=== PATIENT | male | born 1960 | race African-American/Black ===

== ENCOUNTER 2016-11-27 14:48 | Inpatient (IN) ==
[2016-11-27 15:57] LABS: AGAP 13; ALKALINE PHOSPHATASE 51 U/L (32-122); BASO% 0.1 % (0.0-0.8); BUN 22 mg/dL (8-22); CALCIUM 9.5 mg/dL (8.8-10.2); CHLORIDE 99 mmol/L (98-107); COSMO 280; EOS# 0.02 X1000 (0.0-0.7); EOS% 0.1 % (0.0-10.0); GOT 24 U/L (10-34); GPT 25 U/L (10-44); HEMATOCRIT 39.7 % (42.0-52.0); HEMOGLOBIN 13.4 g/dL (14.0-18.0); IMM GRAN# 0.03 X1000 (0.0-0.04); IMM GRAN% 0.2 % (0.0-0.5); LYMPH# 0.95 X1000 (1.2-3.4); LYMPH% 6.5 % (20.5-51.1); MANUAL DIFF NEEDED? NO; MCH 31.2 PG (27-31); MCHC 33.8 g/dL (33-37); MCV 92.3 FL (81-99); MONO# 1.15 X1000 (0.11-0.59); MONO% 7.9 % (1.7-9.3); MPV 9.2 FL (7.4-10.4); NEUT% 85.2 % (42.2-75.2); PLT 336 X1000 (130-400); POTASSIUM 4.1 mmol/L (3.5-5.1); SODIUM 137 mmol/L (136-145); TCO2 25 mmol/L (25-35); TOTAL PROTEIN 7.5 g/dL (6.3-8.3)
[2016-11-27] MEDS ORDERED: VANCOMYCIN 1 GM/NS 1 GM/250 ML IVPB IV ONE (18:02)
[2016-11-27] MEDS ORDERED: DILAUDID IV ONE (18:02)
[2016-11-27] MEDS ORDERED: ZOFRAN IV ONE (18:02)
--- NOTE | 2016-11-27 18:03 | PROVIDER DOCUMENTATION ---
This chart was entered by Loi Najera Scribe, acting as scribe for Tana Aguilar CRNP. HPI-Male Problem - General Source: patient - History of Present Illness-Male Location of Complaint: reports: scrotal Quality of Pain: reports: dull Severity in ED: reports: moderate Onset/Duration: reports: abrupt, this morning Timing: reports: still present, getting worse Context/Activities at Onset: reports: none Urinary Symptoms: reports: no symptoms Associated Symptoms: reports: pain/swelling in testicle. denies: problems with erection, unable to retract foreskin, penile discharge Associated Symptoms: reports: fever/chills, trouble walking. denies: back/neck pain, nausea, vomiting Similar Symptoms Previously?: Yes Recently seen or treated by another doctor?: Yes <Tana Aguilar - Last Filed: 11/27/16 18:03> <Reid Smiht - Last Filed: 11/27/16 19:46> - General Chief Complaint: Testicular Pain Stated Complaint: RECHECK Time Seen by Provider: 11/27/16 15:19 Allergies/Adverse Reactions: Patient Allergies Allergy/AdvReac Type Severity Reaction Status Date / Time No Known Allergies Allergy Verified 11/27/16 17:34 Home Medications: Home Medication List Medication Instructions Recorded Confirmed Last Taken Type Lisinopril/Hydrochlorothiazide 1 each PO DAILY #30 tablet 10/25/16 11/27/16 Rx [Lisinopril-Hctz 20-25 mg Tab] Hydrocodone/Acetaminophen [[place] 1 each PO Q6H PRN #20 tablet 11/27/16 11/27/16 11/27/16 Rx 5-325 Tablet] Sulfamethoxazole/Trimethoprim 1 each PO BID #14 tablet 11/27/16 11/27/16 Rx [Bactrim Ds Tablet] - History of Present Illness-Male Nature of Presenting Problem: Patient is a 56 y/o M that presents to the ER for recheck/revaluation. patient was seen this am for testicular pain. Was told to return if fever developed. He developed a fever this afternoon. Pain worsened to the point with difficulty ambulating. Denies abdominal pain, n/v/d, or penile discharge (Loi Najera) Patient is a 56 y/o M that presents to the ER for recheck/revaluation. patient was seen this am for testicular pain. Was told to return if fever developed. He developed a fever this afternoon. Pain worsened to the point with difficulty ambulating. Denies abdominal pain, n/v/d, or penile discharge (Tana Aguilar) Review of Systems - Adult - REVIEW OF SYSTEMS - ADULT Constitutional: reports: chills, fever Eyes: reports: no symptoms reported Ears, Nose, Mouth & Throat: reports: no symptoms reported Cardiovascular: denies: chest pain, orthopnea, palpitations Respiratory: denies: cough, shortness of breath, wheezing Gastrointestinal: denies: abdominal pain, diarrhea, nausea, vomiting Genitourinary: reports: other (testicular pain). denies: dysuria, frequency Musculoskeletal: reports: no symptoms reported Integumentary: reports: no symptoms reported Neurological: reports: no symptoms reported Psychiatric: reports: no symptoms reported Endocrine: reports: no symptoms reported Hematologic/Lymphatic: reports: no symptoms reported Allergic/Immunologic: reports: no symptoms reported All Other Systems: Reviewed and Negative <Tana Aguilar - Last Filed: 11/27/16 18:03> - REVIEW OF SYSTEMS - ADULT Constitutional: reports: chills, fever <Reid Smith - Last Filed: 11/27/16 19:46> Past History - Adult - PAST MEDICAL HISTORY-ADULT Review of Records: reports: Old Records Reviewed, Nursing Assessment Review, Medications Reviewed Cardiovascular: reports: HTN Gastrointestinal: reports: GERD - PRIOR SURGERIES/PROCEDURES Surgical/Procedure History: reports: none - IMMUNIZATION STATUS Childhood Immunizations: See Nurse Assessment Flu Vaccine: See Nurse Assessment - FAMILY HISTORY Family History: reviewed, not pertinent - SOCIAL HISTORY Smoking: non-smoker Substance Use: none/never Alcohol Use Frequency: never Living Situation: family <Tana Aguilar - Last Filed: 11/27/16 18:03> - PAST MEDICAL HISTORY-ADULT Review of Records: reports: Old Records Reviewed <Reid Smith - Last Filed: 11/27/16 19:46> Physical Exam-General - PHYSICAL EXAM-ADULT Initial Vital Signs Reviewed: Yes - CONSTITUTIONAL General Appearance: alert, mild distress - EYES Eyes: PERRL/EOMI, pink conjunctivae - HEAD, EARS, NOSE, MOUTH & THROAT HENMT: normocephalic/atraumatic, moist mucous membranes, normal ENT inspection - NECK Neck: full range of motion, normal inspection - RESPIRATORY Respiratory: lungs clear, normal breath sounds, no pleuratic chest pain, no accessory muscle use - CARDIOVASCULAR Cardiovascular: no edema, no murmur, tachycardia - GASTROINTESTINAL (ABDOMEN) Abdominal Exam: normal bowel sounds, non tender, soft, no organomegaly, no pulsatile mass - GENITOURINARY Male Genitalia: testicular tenderness (tender to base of testicles), other ( small area to peranal area). negative: inguinal lymphadenopathy - MUSCULOSKELETAL Back Exam: no CVA tenderness, no vertebral tenderness Extremity: normal range of motion, normal inspection, no pedal edema - SKIN Integumentary: normal color, warm/dry - NEUROLOGIC Neurologic: life support technician II-XII nml as tested, no motor/sensory deficits - PSYCHIATRIC Psych/Mental Status: normal mood/affect, normal thought content, normal thought process, oriented x 3 <Tana Aguilar - Last Filed: 11/27/16 18:03> - CONSTITUTIONAL General Appearance: alert, mild distress <Reid Smith - Last Filed: 11/27/16 19:46> Progress - PLAN OF CARE/RESULTS Result Diagrams: 11/27/16 15:26 11/27/16 15:26 - CHANGE OF SHIFT REPORT (ED Provider) Report Given and Care Transferred to:: Reid Smith PA-C Time of Transfer: 18:02 Items Pending: CT/MRI Results <Tana Aguilar - Last Filed: 11/27/16 18:03> - PLAN OF CARE/RESULTS Result Diagrams: 11/27/16 15:26 11/27/16 15:26 - CT/MRI 1 CT Study: Abdomen, Pelvis Impression: Abnormal (Perineal abscess - radiology) - CONSULTS/PCP/HOSPITALIST Notification #1 *Consult/PCP/Hospitalist*: Dr. Riley (General surgery) Time Discussed: 19:44 Reason/Comments: Will see pt in the ER. Please consult the hospitalist #2 Consult: Dr. Young (Hospitalist) Time Discussed: 19:45 Reason/Comments: Will admit pt. LOAN MANAGER will see pt in the ER and write orders. <Reid Smith - Last Filed: 08/30/17 19:46> - PLAN OF CARE/RESULTS Progress/Plan/Lab Results: Vital Signs - 8 hr 11/27/16 14:54 11/27/16 17:43 11/27/16 18:26 Temperature 102.3 F H 100.2 F H 101 F H Pulse Rate 123 H 113 H 110 H Respiratory Rate 19 18 18 Blood Pressure 150/73 145/81 118/63 O2 Sat by Pulse Oximetry 100 99 99 Laboratory Results - last 24 hr 11/27/16 11/27/16 11/27/16 15:26 15:26 18:30 WBC 14.62 H RBC 4.30 L Hgb 13.4 L Hct 39.7 L MCV 92.3 MCH 31.2 H MCHC 33.8 RDW Std Deviation 12.0 Plt Count 336 MPV 9.2 Immature Gran % (Auto) 0.2 Neut % (Auto) 85.2 H Lymph % (Auto) 6.5 L [place] % (Auto) 7.9 Eos % (Auto) 0.1 Baso % (Auto) 0.1 Immature Gran # (Auto) 0.03 Neut # (Auto) 12.46 H Lymph # (Auto) 0.95 L Williamson # (Auto) 1.15 H Eos # (Auto) 0.02 Baso # (Auto) 0.01 Sodium 137 Potassium 4.1 Chloride 99 Carbon Dioxide 25 Anion Gap 13 BUN 22 Creatinine 1.2 Estimated GFR/1.73 m2 > 60 BUN/Creatinine Ratio 18 Glucose 148 H Calculated Osmolality 280 Calcium 9.5 Total Bilirubin 0.40 AST 24 ALT 25 Alkaline Phosphatase 51 Total Protein 7.5 Albumin 4.0 Globulin 3.5 Albumin/Globulin Ratio 1.1 Urine Source CLEAN CATCH Urine Color YELLOW Urine Turbidity CLEAR Urine pH 6.0 Ur Specific [place] 1.025 Urine Protein NEGATIVE Ur Glucose (Stick) NEGATIVE Ur Ketones (Stick) NEGATIVE Urine Blood SMALL A Urine Nitrite NEGATIVE Urine Bilirubin NEGATIVE Urobilinogen Dipstick 3 A Urine Leukocytes NEGATIVE Urine WBC (Auto) <10 Urine RBC (Auto) <10 U Epithel Cells (Auto) <10 Urine Bacteria (Auto) NEGATIVE Orders Category Date Time Status Saline Loc NOW Care 11/27/16 15:[address] PELVIS W/CONTRAST [CT] Stat Exams 11/27/16 17:20 Completed BLOOD CULTURE [BLDCUL] Stat Lab 11/27/16 18:42 Results CBC WITH ELECTRONIC DIFF [HEME] Stat Lab 11/27/16 15:26 Completed COMPREHENSIVE METABOLIC PANEL [CHEM] Stat Lab 11/27/16 15:26 Completed UA [URINALYSIS W/POSS RFLX CULT-1] [URINALYSIS] Stat Lab 11/27/16 18:30 Completed Hydromorphone [Dilaudid] Med 11/27/16 18:02 Discontinued 1 mg IV NOW ONE Hydromorphone [Dilaudid] Med 11/27/16 18:17 Discontinued 2 mg .ROUTE .STK-MED ONE Ondansetron [Zofran] Med 11/27/16 18:02 Discontinued 4 mg IV NOW ONE Vancomycin 1 gm/Ns Med 11/27/16 18:02 Discontinued 1 gm in 250 ml IV NOW Zosyn 3.375 gm/Ns IV Now Med 11/27/16 19:42 Ordered Piperacillin/Tazobactam [Zosyn] 3.375 gm 0.9% Sodium Chloride Inj [Ns] 50 ml IV NOW Departure <Tana Aguilar Filed: 11/27/16 18:03> - Departure Date of Disposition Decision: 11/27/16 Time of Disposition Decision: 19:45 Certified Medical Emergency: Emergent - Critical Care Note This patient required my direct & personal management of CC.: Yes <Reid Smith Filed: 11/27/16 19:46> - Departure DIAGNOSIS: Perineal abscess Disposition: ADMITTED INPATIENT 09 Condition: Stable Referrals and Follow-Ups: None,PCP [Primary Care Provider] - Attestation - Physician/ JUS Attestation Patient care was provided by Advanced Practice Provider:: Yes Advanced Practice Provider:: Tana Aguilar Advanced Practice Provider documentation review:: The Mid-level provider documentation, treatment plan and medical decision making was reviewed by the physician who agrees with all treatment and medical decision making by the [facility]. <Tana Aguilar Filed: 11/27/16 18:03> - Physician/ JUS Attestation The physician spent face to face time with patient:: No Advanced Practice Provider documentation review:: Supervising physician onsite and consulted in the evaluation and care of this patient. The physician did not have a face to face encounter with the patient. <Reid Smith Filed: 08/30/17 19:46> This chart was documented by the indicated scribe, (Loi Najera, Scribe) and accurately reflects the services I performed and decisions made by me, Tana Aguilar CRNP, as attested by the provider's signature.
[2016-11-27] MEDS ORDERED: DILAUDID ONE (18:17)
[2016-11-27 19:21] LABS: URINE CULTURE NEEDED? NO; URINE MICRO REVIEW NEEDED? NO; URINE SOURCE CLEAN CATCH
[2016-11-27 19:28] LABS: BILIRUBIN URINE NEGATIVE (NEGATIVE); BLOOD URINE SMALL (NEGATIVE); COLOR YELLOW; GLUCOSE URINE NEGATIVE (NEGATIVE); LEUKOCYTES URINE NEGATIVE (NEGATIVE); NITRITE URINE NEGATIVE (NEGATIVE); PROTEIN URINE NEGATIVE (NEGATIVE); SP GRAVITY URINE 1.025; TURBIDITY URINE CLEAR (CLEAR); UROBILINOGEN URINE 3 mg/dL (NORMAL)
[2016-11-27 19:31] LABS: UR EPITHELIAL CELLS <10 /HPF (<10); URINE BACTERIA NEGATIVE /HPF; URINE RBC <10 /HPF (<10); URINE WBC <10 /HPF (<10)
--- NOTE | 2016-11-27 19:40 | Diag Imaging Result Doc PS360 ---
EXAM: CT PELVIS W/CONTRAST INDICATION: Pain behind scrotum TECHNIQUE: Dose reduction protocol was used. COMPARISON: None. FINDINGS: There is a soft tissue fluid collection with an enhancing periphery involving the perineum on the left posterior to the scrotum suspicious for abscess. At the greatest axial dimensions it measures up to 2.6 x 1.5 cm. However, on a sagittal reformation, it measures up to 7 cm in length anterior to posterior. Posteriorly, it approaches the anal verge. There is mild surrounding inflammatory stranding. There is no intrapelvic extension. Review of the intrapelvic structures reveals a prominent prostate. The intrapelvic structures are grossly unremarkable, otherwise. IMPRESSION: Left perineal fluid collection with an enhancing periphery suspicious for abscess. Electronically signed by Reid Sofia 11/27/2016 7:37 PM
[2016-11-27] MEDS ORDERED: ZOSYN 3.375 GM in NS 50 ML IV ONE (19:42)
[2016-11-27] MEDS ORDERED: XYLOCAINE 2%/EPI 1:100,000 ONE (19:59)
[2016-11-27] MEDS ORDERED: TYLENOL PO ONE (20:28)
[2016-11-27 21:02] LABS: INR 1.05; PROTIME 11.1 Seconds (9.2-11.7); PTT 30.5 Seconds (22.0-36.0)
--- NOTE | 2016-11-27 22:33 | CONSULTATION ---
DATE OF CONSULTATION: 11/27/2016 HISTORY OF PRESENT ILLNESS: This is a 56-year-old male who states that yesterday he started noticing some pain and swelling in his perineum. He presented to the emergency department today where he was given oral antibiotics and followup with Urology. He was instructed to come back if he developed fevers. He said he had a similar episode previously that spontaneously drained and resolved on its own earlier this year; however, upon leaving, he became febrile and tachycardic and came back to the emergency department. A CT scan was obtained at this time that showed perirectal abscess extending to the perineum and posterior scrotum, without any gas. He is hemodynamically stable, but he has been tachycardic. Otherwise, he has been in his usual state of health. Denies any blood in his stools. He had a colonoscopy at age 41 which was apparently normal and he is due to have another one, but no change in his bowel movements recently. MEDICAL HISTORY: He has hypertension, but denies any diabetes. SURGICAL HISTORY: Negative. SOCIAL HISTORY: No tobacco, alcohol, or drugs. He works for [employer]. FAMILY HISTORY: Reviewed with the patient and noncontributory. He denies any cancer. REVIEW OF SYSTEMS: Ten point negative other than what is mentioned in HPI. PHYSICAL EXAMINATION: Vital Signs: Temperature is 101 degrees. It was 102.3 when he came in. Pulse is 110, blood pressure 118/63, O2 saturation 99% on room air. General: He is alert, in no acute distress. HEENT: No scleral icterus or cervical masses. Cardiovascular: Normal rate and regular rhythm. Pulmonary: No increased work of breathing. Abdomen: Soft, nontender, nondistended. Rectal: Shows induration and fluctuance anterior, extending to the posterior scrotum and posteriorly into the gluteal cleft. There are no masses noted on digital rectal, but there is some induration at the anterior left lateral aspect. Musculoskeletal: He has got normal range of motion and strength throughout. Neurologic: No gross motor deficits. Psychiatric: Appropriate affect and insight into his current situation. Lymphatic: There is no inguinal lymphadenopathy. Genitourinary: Normal external male genitalia with the exception of the findings noted on his rectal exam. LABORATORY AND IMAGING: White count is elevated at 14, hematocrit 39, platelets 336,000. Creatinine is 1.2. Glucose 148. LFTs are normal. Albumin is normal at 4. CT scan shows a perirectal abscess extending to the perineum. I do not see any gas contained within the collection. It is 2.6 x 1.5 cm and 7 cm in length anterior to posterior. There is a prominent prostate, but otherwise no intra-abdominal pathology. ASSESSMENT AND PLAN: This 56-year-old male, with a perirectal abscess extending anteriorly to the perineum. We discussed options. I have recommended an incision and drainage of the abscess, discussed the possibility of going to the operating room or doing it here at the bedside. He would like to forego general anesthesia and attempt it here at the bed side. We did discuss the possibility that if he were to worsen, he may still ultimately need surgical intervention, especially if we find necrotic tissue here on incision and drainage at the bedside. He consents to this and we also discussed the possibility of developing a perianal fistula. He understands this and will need to watch this as an outpatient. In the meantime, the hospitalist service had been consulted by the emergency department for evaluation and management. He is slightly hyperglycemic and may need some management of this while inpatient. Otherwise, we will continue broad-spectrum antibiotics. We will plan to take a wound culture and will follow him closely. Operative note will follow for incision and drainage. cc: Daniel Riley MD
--- NOTE | 2016-11-27 22:59 | OPERATIVE NOTE ---
PROCEDURE DATE: 11/27/2016 PREOPERATIVE DIAGNOSIS: Perineal/perirectal abscess. POSTOPERATIVE DIAGNOSIS: Perineal/perirectal abscess. PROCEDURE PERFORMED: Incision and drainage of perineal/perirectal abscess. ESTIMATED BLOOD LOSS: Less than 5 mL. SPECIMENS: Cultures were taken of wounds with fluid. ANESTHESIA: Local. INDICATION: This is a 56-year-old male with a perineal abscess on CT scan that extends to the distal rectum consistent with a perirectal abscess. OPERATIVE FINDINGS: There was a simple abscess cavity extending from the posterior aspect of the scrotum towards the anal verge with no evidence of undrained collections and no necrotic tissue or evidence of Alma's. OPERATIVE NOTE: Risks, benefits, alternatives discussed extensively with the patient. He consented to the procedure. Surgical site was confirmed. Time-out was performed. The perineum was prepped with Betadine solution over the area of most fluctuance after reviewing his images and was draped in usual fashion. Local anesthetic lidocaine with epinephrine was infiltrated over the area of most prominence. There was an ulcerated area just at the posterior aspect of his scrotum on the perineum that felt to be the area of most fluctuance. After local anesthetic was infiltrated using an 11 blade scalpel, we incised this area, making a large incision to facilitate drainage. A large amount of thick purulent material was expressed. We did culture this and we probed it with a hemostat and broke up any loculations. We were able to fully assess and felt this was a single cavity that extended in a corresponding direction to a CT scan and felt we had adequate drainage here. We irrigated the cavity and packed it with iodoform gauze and covered it with an ABD and mesh panties. He tolerated procedure well. There was no identified complication. I feel that we have good drainage and source control of this. We will continue his broad-spectrum antibiotics and admit him tonight for observation and will evaluate in a few hours to decide if he needs further surgical debridement, and I suspect he will not. cc: Daniel Riley MD
[2016-11-27] MEDS ORDERED: VANCOMYCIN 1,500 MG in NS 250 ML IV ONE (23:00)
[2016-11-27] MEDS ORDERED: DILAUDID IV PRN (23:10)
[2016-11-27] MEDS ORDERED: VANCOMYCIN IV PER PHARMACY MISC SCH (23:10)
[2016-11-27] MEDS ORDERED: ZOFRAN IV PRN (23:10)
--- NOTE | 2016-11-27 23:35 | HISTORY AND PHYSICAL ---
PRIMARY CARE PHYSICIAN: Unknown. CHIEF COMPLAINT: Groin pain. HISTORY OF PRESENTING ILLNESS: A 56-year-old male with a history of hypertension, who presented to the emergency department with several days' history of having some groin pain. He states that it was mostly underneath his left testicle, and he states that he was having more discomfort, and subsequently had come to the emergency department. In the ER, he was evaluated and it seemed that he had a perineal abscess, and subsequently a bedside I D was done by General Surgery. However, due to patient's presenting symptoms, it was thought that he would need admission for further evaluation and management and possible further I &D by General Surgery in the morning. PAST MEDICAL HISTORY: Hypertension. PAST SURGICAL HISTORY: None. ALLERGIES: No known drug allergies. CURRENT MEDICATIONS: Listed in the medication reconciliation sheet. SOCIAL HISTORY: No history of smoking, alcohol, or illicit drug use. FAMILY HISTORY: No history of coronary artery disease. REVIEW OF SYSTEMS: A 12-point review of systems listed as in HPI. Other systems negative. PHYSICAL EXAMINATION: GENERAL: Cooperative, friendly male. He is resting comfortably. VITAL SIGNS: Temperature 102.3, pulse 123, respiration 19, blood pressure 150/ 73. HEENT: Atraumatic, normocephalic. Extraocular movements intact. PERRLA. NECK: Supple. CHEST: Clear to auscultation. CARDIOVASCULAR: Regular rate and rhythm. S1, S2. ABDOMEN: Soft, nontender. EXTREMITIES: No edema. GENITOURINARY: There is some tenderness underneath his left testis. NEUROLOGIC: Nonfocal. SKIN: Warm. LABORATORIES AND STUDIES: WBC 14.62, hemoglobin 13.4, hematocrit 39.7, platelets 336,000. Sodium 137, potassium 4.1, chloride 99, CO2 25, BUN is 22, creatinine is 1.2, glucose is 148. ASSESSMENT: A 56-year-old male with a history of hypertension, who presented to the emergency department with several days' history of having groin pain. He is found to have an abscess under his left testes. Subsequently, he will need hospitalization for further management. 1. Perineal abscess. 2. Hypertension. PLAN: 1. We will admit patient to medical floor. 2. We will keep patient NPO and start patient on IV antibiotics. 3. General Surgery was already consulted. 4. Monitor blood pressure. Resume antihypertensive agent. 5. Put patient on DVT prophylaxis with SCDs. 6. We will continue to follow and reassess. cc: MD NOHEMI Steele
[2016-11-28] MEDS: NS 1,000 ML IV SCH ×2 (00:19→11:59)
[2016-11-28] MEDS: PRINZIDE 10/12.5MG PO SCH ×2 (00:19→11:17)
[2016-11-28] MEDS ORDERED: TYLENOL PO PRN (03:00)
[2016-11-28] MEDS: ZOSYN 3.375 GM in NS 50 ML IV SCH ×4 (03:38→20:23)
[2016-11-28 06:47] LABS: MANUAL DIFF NEEDED? NO
[2016-11-28 06:56] LABS: BASO% 0.1 % (0.0-0.8); EOS# 0.04 X1000 (0.0-0.7); EOS% 0.3 % (0.0-10.0); HEMATOCRIT 35.4 % (42.0-52.0); HEMOGLOBIN 11.8 g/dL (14.0-18.0); IMM GRAN# 0.02 X1000 (0.0-0.04); IMM GRAN% 0.1 % (0.0-0.5); LYMPH# 1.68 X1000 (1.2-3.4); LYMPH% 12.2 % (20.5-51.1); MCHC 33.3 g/dL (33-37); MCV 92.9 FL (81-99); MONO# 1.28 X1000 (0.11-0.59); MONO% 9.3 % (1.7-9.3); MPV 9.4 FL (7.4-10.4); PLT 294 X1000 (130-400); RBC 3.81 XMIL (4.7-6.1)
[2016-11-28 07:13] LABS: AGAP 11; ALBUMIN 3.5 g/dL (3.5-5.0); ALKALINE PHOSPHATASE 48 U/L (32-122); BUN 18 mg/dL (8-22); CALCIUM 8.6 mg/dL (8.8-10.2); CHLORIDE 101 mmol/L (98-107); COSMO 277; GOT 20 U/L (10-34); GPT 21 U/L (10-44); SODIUM 138 mmol/L (136-145); TCO2 26 mmol/L (25-35); TOTAL BILIRUBIN 0.92 mg/dL (0.20-1.00); TOTAL PROTEIN 6.5 g/dL (6.3-8.3)
--- NOTE | 2016-11-28 07:29 | EKG Report ---
Test Performed on : 11/28/2016 06:57:28 AM Test Reason : Perineal Abscess, Surgical Patient Blood Pressure : / mmHG Vent. Rate : 080 BPM Atrial Rate : 080 BPM P-R Int : 128 ms QRS Dur : 096 ms QT Int : 388 ms P-R-T Axes : 054 001 195 degrees QTc Int : 447 ms Normal sinus rhythm. Incomplete right bundle branch block Minimal voltage criteria for LVH, may be normal variant ST \T\ Marked T wave abnormality, consider anterolateral ischemia Abnormal ECG When compared with ECG of 25-OCT-2016 05:14, RSR' or QR pattern in V1 suggests right ventricular conduction delay ST less elevated in V2 T wave inversion no longer evident in V3 T wave inversion more evident in aVL Confirmed by Ben Sweet DO ([id number]) on 11/28/2016 4:59:58 PM
--- NOTE | 2016-11-28 13:47 | PROGRESS NOTE ---
DATE: 11/28/2016 SUBJECTIVE: Today, Mr. Gautam Milton referred to be doing a lot better. Less draining from the incision site. OBJECTIVE: Vital Signs: Blood pressure is 134/67, pulse of 73, respirations 20, temperature 98.4 degrees. General: Mr. Milton is a 56-year-old -[place] male. He is in bed and does not seem to be in any distress. HEENT: Mucosa is pink and moist. Anicteric. Acyanotic. Neck is supple. Chest is clear. Cardiovascular: Regular rate and rhythm. No murmurs, no rubs, no gallops. Abdomen soft, nontender. Extremities: No pedal edema. LEAD SOFTWARE ENGINEER: Patient is awake, alert, and oriented x4. There is no focal neurological deficit. Genitalia: There is a minimum area around the left scrotum posteriorly almost midline which has the incision site. It is minimally draining. ASSESSMENT: 1. Perineal/perirectal abscess, status post incision and drainage. The patient is currently on IV antibiotics, vancomycin and Zosyn. We are waiting on the final culture on the surgical specimen to narrow down the antibiotics. 2. Hypertension. We will continue with lisinopril and hydrochlorothiazide. 3. Overweight with Body Mass Index of 27. Patient has been counseled. 4. Leukocytosis likely secondary to underlying perirectal abscess. In general, Mr. Milton is relatively stable. White count is still a little elevated. We are going to continue with the current IV antibiotics, wait on the final culture report tomorrow and, hopefully, we will be able to discharge him. So far, the groin culture seems to be negative. I am not sure if this is the same cultural from the surgery; however, the blood culture is still pending. If the blood culture tomorrow is also negative, I think the patient can be discharged on Augmentin. cc: Milan Stokes MD
--- NOTE | 2016-11-28 15:27 | PROGRESS NOTE ---
DATE: 11/28/2016 SUBJECTIVE: He feels well. His pain has improved. The pressure in his perineum has improved. He is passing gas. No abdominal pain. OBJECTIVE: No more fevers, pulse 76, blood pressure 135/67, oxygen saturation 99% on room air. General: He is alert in no acute distress. Cardiovascular: Normal rate, regular rhythm. Abdomen soft, nontender, nondistended. Perineal wound with no purulent drainage. Decreased erythema and induration. LABORATORY DATA: White count is down to 13. Hematocrit is 35. Creatinine is 1.0, glucose is 95. ASSESSMENT AND PLAN: A 56-year-old male with perirectal abscess extending into the perineum, status post incision and drainage. I think it has been adequately drained. No need for surgical intervention. I will remove the packing today. His wound cultures are pending. Blood cultures are apparently preliminary negative. It would be reasonable to transition to oral antibiotics and let him go home if clear from a medical standpoint. cc: Daniel Riley MD
[2016-11-29] MEDS: ZOSYN 3.375 GM in NS 50 ML IV SCH ×2 (01:29→08:17)
[2016-11-29] MEDS ORDERED: VANCOMYCIN 2,000 MG in NS 500 ML IV SCH (02:00)
[2016-11-29 08:46] LABS: MANUAL DIFF NEEDED? NO
[2016-11-29 09:00] LABS: BASO% 0.3 % (0.0-0.8); EOS# 0.14 X1000 (0.0-0.7); EOS% 1.8 % (0.0-10.0); HEMATOCRIT 38.2 % (42.0-52.0); HEMOGLOBIN 12.8 g/dL (14.0-18.0); LYMPH# 1.42 X1000 (1.2-3.4); LYMPH% 18.3 % (20.5-51.1); MCH 30.8 PG (27-31); MCHC 33.5 g/dL (33-37); MCV 91.8 FL (81-99); MONO# 0.54 X1000 (0.11-0.59); MPV 9.3 FL (7.4-10.4); NEUT% 72.6 % (42.2-75.2); PLT 328 X1000 (130-400); RBC 4.16 XMIL (4.7-6.1)
[2016-11-29 09:34] LABS: AGAP 13; BUN 15 mg/dL (8-22); CHLORIDE 99 mmol/L (98-107); COSMO 278; POTASSIUM 4.5 mmol/L (3.5-5.1); SODIUM 139 mmol/L (136-145); TCO2 27 mmol/L (25-35)
[2016-11-29 11:23] VITALS: BP 134/73
[2016-11-29] MEDS: PRINZIDE 10/12.5MG PO SCH ×2 (11:42→11:44)
--- NOTE | 2016-11-29 14:04 | PROGRESS NOTE ---
DATE: 11/29/2016 SUBJECTIVE: No pain. No further drainage. OBJECTIVE: No fevers. No tachycardia. Overnight blood pressure 124/64. O2 saturation 100%. General: He is alert, in no acute distress. HEENT: There is no scleral icterus. Cardiovascular: Normal rate, regular rhythm. Perineal exam: Shows decreased erythema and induration. No residual fluctuance and no perianal pain. LABS: White count normal at 7, hematocrit 38, creatinine 0.8. ASSESSMENT/PLAN: 56-year-old male with perirectal abscess extending to the perineum and posterior scrotum. This was drained and is healing well. Wound cultures still pending but have preliminarily no growth. It would be reasonable to transition to oral antibiotics and discharged home. I can see him back in a week to monitor his wound. Otherwise he will keep it clean and dry with the cup. Make sure he has anaerobic and gram-positive coverage given the location. Bactrim or clindamycin would be reasonable. Will continue to follow along. cc: Daniel Riley MD
[2016-11-29] MEDS ORDERED: AUGMENTIN PO SCH (21:00)
--- NOTE | 2016-11-30 13:05 | DISCHARGE SUMMARY ---
ADMISSION DATE: 11/27/2016 DISCHARGE DATE: 11/29/2016 CONSULTATIONS: Dr. Rome Riley with General Surgery. PERTINENT PROCEDURES: Pelvis CT: Showed left peritoneal fluid collection with enhancing periphery, suspicious for abscess. SURGICAL PROCEDURES: An I D of perineal perirectal abscess performed by Dr. Rome Riley. DISCHARGE DIAGNOSES: 1. Perirectal abscess extending into the peritoneal and posterior scrotum status post I D by Dr. Riley. Wound cultures still pending, all showing no growth. Preliminary, the patient initially on IV antibiotics. Transitioned to p.o. Will follow up with Dr. Riley in the wound clinic in 1 week. He will keep his wound clean and dry. 2. Hypertension. Continue home medications. 3. Overweight with a body mass index of 27. The patient has been counseled on diet and exercise. 4. Leukocytosis secondary to perirectal abscess. Continue p.o. antibiotics. HOSPITAL COURSE: Mr. Milton is a 56-year-old male with a history of hypertensio , who presented to the ED with a several day history of having some groin pain. He stated it was mostly underneath his left testicle. He states that he was having more discomfort and he came to the ED to be evaluated. A pelvis CT performed in the ED showed a left perineal fluid collection with enhancing periphery suspicious for abscess. Dr. Riley recommended an I D of the abscess and discussed going to the operating room or doing it at the bedside. The patient wanted to attempted it at the bedside. The patient did end up requiring another I D in the operating room with Dr. Riley. Continued on broad-spectrum antibiotics and wound care throughout his hospital stay. Preliminary cultures have all remained negative. His white count is normal. He has remained afebrile. He was transitioned to oral antibiotics. Dr. Riley will see him back in 1 week to monitor his wound. He is to keep it clean and dry. He is being discharged on Augmentin. VITAL SIGNS AT THE TIME OF DISCHARGE: Temperature is 98.4 degrees, heart rate 90, respirations 20, blood pressure 134/73, O2 is 99% on room air. DISCHARGE DIET: Regular. DISCHARGE MEDICATIONS: 1. Augmentin 875 p.o. b.i.d. 2. [place] 5/325 1 each p.o. every 6 hours. 3. Lisinopril/hydrochlorothiazide 1 each p.o. daily. FOLLOWUP: Mr. Milton is being discharged home. He will follow up with Dr. Rome Riley in 1 week for a wound check. He is take all antibiotics as prescribed. He is to keep his wound clean and dry. He can return to the emergency department for any worsening of symptoms. This is EMILY Deras, doing a discharge summary for Dr. Miller. I personally evaluated this patient face to face, all the images and lab work was reviewed as well as medications, this patient is stable and ready to be discharged, he is felling much better, the abscess has been drained, follow up with his primary doctor and Surgery department, Daniel Marino MD Dictated by EMILY Deras for Daniel Valderrama MD cc: Daniel Valderrama MD MTDD
== END 2016-11-29 14:43 | disposition home or self-care (01) ==
LOC: ED 14:48 → 4N 21:38 → SUATTDRO 21:38
PROVIDERS: ATTEND Internal Medicine